=== PATIENT | female | born 1990 | race Caucasian/White ===

== ENCOUNTER 2021-03-08 10:55 | Emergency (ER) | payer MEDICARE, OTHER ==
[~2021-03-08] VITALS: Ht 170.2 cm; Wt 82.0 kg
[2021-03-08] MEDS ORDERED: MAGNESIUM/ALUMINUM HYDROXIDE/SIMETHICONE 30ML UDC PO STA (11:26)
[2021-03-08 11:53] LABS: CLARITY URINE CLOUDY (CLEAR); COLOR URINE DARK YELLOW (YELLOW); KETONES URINE TRACE (NEGATIVE); LEUKOCYTE ESTERASE URINE NEGATIVE (NEGATIVE); NITRITE URINE NEGATIVE (NEGATIVE); OCCULT BLOOD URINE 2+ (NEGATIVE); PH URINE 5.5 (4.5-8.0); PROTEIN URINE 4+ (NEGATIVE); SPECIFIC GRAVITY URINE 1.024 (1.005-1.030)
[2021-03-08 11:53] LABS: HEMATOCRIT. 33.8 % (36.0-48.0); HEMOGLOBIN. 11.6 g/dL (12.0-16.0); MEAN CORPUSCULAR HEMOGLOBIN 26.8 pg (28.0-32.0); MEAN CORPUSCULAR VOLUME 78.3 fL (81.0-99.0); MEAN PLATELET VOLUME 6.2 fl (7.4-10.4); PLATELET 273 x1000/uL (130-400); RED BLOOD CELL COUNT 4.32 mill/uL (4.2-5.4); RED CELL DISTRIBUTION WIDTH 14.7 % (11.6-14.6)
[2021-03-08 11:54] LABS: CHLORIDE 101 mEq/L (98-107)
[2021-03-08 11:57] LABS: PROTHROMBIN TIME 11.2 sec (9.6-11.0)
[2021-03-08 13:13] LABS: PLATELET ESTIMATE NORMAL
[2021-03-08] MEDS ORDERED: DOCU-138 MT (14:29)
[2021-03-08] MEDS ORDERED: FAMO20TA8 MT (14:29)
[2021-03-08] MEDS ORDERED: CEPH500C2 MT (14:29)
[2021-03-08] MEDS ORDERED: SIME125C MT (14:29)
[2021-03-08 17:00] VITALS: BP 118/82
== END 2021-03-08 17:25 | disposition home or self-care (01) ==
LOC: ER 11:23
DX: K59.00 Constipation, unspecified (principal); N39.0 Urinary tract infection, site not specified; E11.9 Type 2 diabetes mellitus without complications; I10 Essential (primary) hypertension; M32.9 Systemic lupus erythematosus, unspecified; M19.90 Unspecified osteoarthritis, unspecified site; Z98.890 Other specified postprocedural states
CPT/HCPCS: 36415; 74176; 80053; 81003; 81025; 85025; 99285

== ENCOUNTER 2024-12-24 15:13 | Emergency (ER) | payer MEDICARE, OTHER ==
[~2024-12-24] VITALS: Ht 170.2 cm; Wt 65.9 kg
[~2024-12-24 15:13] MED LIST: CEPH500C2 MT; DOCU-138 MT; FAMO20TA8 MT; SIME125C MT
[2024-12-24 15:24] VITALS: O2SAT 99
[2024-12-24 15:29] VITALS: BP 134/86; PULSE 65; RESP 18; TEMP 36.9
== END 2024-12-24 17:30 | disposition home or self-care (01) ==
LOC: ER 15:13
DX: S10.83XA Contusion of other specified part of neck, initial encounter (principal); E11.9 Type 2 diabetes mellitus without complications; I10 Essential (primary) hypertension; Z98.890 Other specified postprocedural states; Z79.899 Other long term (current) drug therapy; V43.52XA Car driver injured in collision with other type car in traffic accident, initial encounter; Y93.89 Activity, other specified; Y92.89 Other specified places as the place of occurrence of the external cause; Y99.8 Other external cause status
CPT/HCPCS: 99281